=== PATIENT | male | born 1995 | race Two or more races ===

== ENCOUNTER 2017-07-24 17:42 | Emergency (ER) | payer MEDICAID ==
[~2017-07-24] VITALS: Ht 170.2 cm; Wt 106.6 kg
[2017-07-24] MEDS ORDERED: ACETAMINOPHEN 325 MG TAB PO ONE (18:00)
[2017-07-24 18:02] VITALS: BP 137/90
== END 2017-07-24 19:28 | disposition left against medical advice (07) ==
LOC: ER 17:52
DX: R50.9 Fever, unspecified (principal); Z53.21 Procedure and treatment not carried out due to patient leaving prior to being seen by health care provider